=== PATIENT | male | born 1930 | race Caucasian/White ===

== ENCOUNTER 2017-07-27 19:30 | Inpatient (IN) | payer OTHER, BC ==
[~2017-07-27] VITALS: Ht 160 cm; Wt 104.3 kg
--- NOTE | ~2017-07-27 | HC ---
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 He is well known to me and in fact has had a fairly complete cardiac workup recently. Unfortunately, suffered a fall while going to a customer advisor specialist in the parking lot a couple of days ago with the left fractured nosed, left frontal forehead abrasion and a fracture of the right metacarpal bone in his right hand. He has been having some frequent PVCs and this is a known chronic finding. He has had frequent PVCs for years. He is moderately bradycardic. A few months ago, we switched the Cardizem to Toprol for some cardioprotection and then he subsequently has been doing well from a cardiac perspective. There has not been any syncope or presyncope and this was a fall. There were 3 syncopal events, but these occurred some months ago. This was a fall from the wind and not a syncopal event. Nuclear stress testing was done on 05/18/2017 and there was no evidence of significant ischemic response. Echo Doppler was also performed on 05/18 and this ejection fraction was 35-40% range in a global fashion, some mild atrial enlargement. There was no aortic valve stenosis. Mild mitral and tricuspid regurgitation. No effusion. He has actually been doing well until this fall. He was voicing no complaints. No TIA symptoms, no significant shortness of breath. He had been maintained on Toprol 50. This was held this morning for some mild bradycardia. Fenofibrate, aspirin, ranitidine, Metamucil. PAST MEDICAL HISTORY: Positive for cardiac catheterization with moderate 3-vessel disease in 2004. Recent nuclear test, mild idiopathic cardiomyopathy. Cholecystectomy colectomy, inguinal hernia repair, hypertension, hypercholesterolemia, melanoma in situ, reflux, DJD. ALLERGIES: PENICILLIN. SOCIAL HISTORY: He is independent. No tobacco. Social alcohol use. 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 He is . His did in 2010. REVIEW OF SYSTEMS: Negative except for some nocturia and hesitancy. Some reflux issues and as stated above and the 3 prior syncopal events, but none recently. LABORATORY WORK: CT of the head shows diffuse atrophy, no acute. There is a nondisplaced left nasal bone fracture. Creatinine was 1.9, this is around his baseline. Potassium 4.2. In fact the creatinine is improved now to 1.5 with some gentle hydration. Negative troponin. H and H are 15 and 44. PHYSICAL EXAMINATION: [facility] [address] [place] [address] CONSULTATION Name: MARISELA PEDRAZA Jono Room #: 410-P [facility] IN M.R.#: [id number] Admission: 07/27/17 Attend Phys: Gerry Kingsley MD Discharge: Date of : 31 Report #: [id number] GENERAL: Pleasant, alert. Does have an abrasion on his left face and nose and a splint on the right hand. VITAL SIGNS: Blood pressure 140/90, pulse is 55-60 with PVCs. HEENT: Eyes reveal no xanthelasmas. Arcus senilis is noted. Pharynx is clear. NECK: Shows preserved upstrokes without JVD or bruits. LUNGS: Clear. CARDIOVASCULAR: Regular rate and rhythm, S1, S2. There are frequent ectopic beats. ABDOMEN: Soft. No HSM or abdominal bruit. EXTREMITIES: Reveal no edema. There is a split in the right arm and there is a trace to 1+ edema bilateral lower extremities. MUSCULOSKELETAL: Generalized arthritic changes and the fracture of the right metacarpal bone with splint in place in the right hand. SKIN: Mild venous stasis changes. Abrasion on the left nose and left face. ASSESSMENT: 1. Status post fall secondary to wind, nonsyncopal. 2. Mild bradycardic, hemodynamically significant. 3. Frequent premature ventricular contractions are known by history. 4. Mild idiopathic cardiomyopathy with echo Doppler last performed on 05/18/2017, ejection fraction 40% range. 5. Moderate coronary artery disease with remote catheterization and negative nuclear test in 04/2017. 6. Right metacarpal bone fracture from fall and nasal fracture. RECOMMENDATIONS AND PLAN: I agree with holding the Toprol, currently, but will need a lower dose I suspect, not discontinued. We do like to continue with low-dose Toprol, beta blockers for the frequent ventricular ectopy. This was not related to any dysrhythmias in my opinion. We will keep him on the telemetry bed and follow with you. Thank you for asking me to assist in the care of this patient. By: 1234 1741 Caesar Escalona MD, FACC /nt
--- NOTE | ~2017-07-27 | EKG ---
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: MZOOK : 1930 Requested By: Ollie Michaels Order Number: [id number] MD: Eric Abdullahi Measurements Intervals [place] Rate: 63 P: 5 MD: 163 QRS: -41 QRSD: 116 T: -10 QT: 463 QTc: 475 Interpretive Statements Sinus rhythm Ventricular trigeminy Left anterior fascicular block Borderline T abnormalities, inferior leads No previous ECG available for comparison Electronically Signed On 07-28-2017 13:22:57 CDT by Eric Abdullahi [email or web address] <ELECTRONICALLY SIGNED> By: Eric Abdullahi MD, [facility] 07/28/17 1322 15 15 Eric Abdullahi MD, [facility] /EPI
[~2017-07-27 19:30] MED LIST: ASPIR 8181 MG PO; FENOFIBRATE134 MG PO; METOPROLOL SUCC50 MG PO
[2017-07-27 19:33] VITALS: BP 144/52
[2017-07-27] MEDS ORDERED: METAMUCIL PLUS1 EACH PO (20:01)
[2017-07-27 20:18] LABS: ABSOLUTE NEUTROPHILS 4.8 thou/uL (1.4-8.2); BASOPHILS 1.1 % (0.0-2.0); EOSINOPHILS 1.4 % (0.0-3.0); HEMATOCRIT 44.6 % (42.0-52.0); HEMOGLOBIN 15.1 gm/dL (14.0-18.0); LYMPHOCYTES 18.1 % (24.0-44.0); MCH 32.2 pg (26.0-34.0); MCHC 33.9 g/dL (28.0-37.0); MONOCYTES 9.6 % (1.0-8.0); PLATELET COUNT 164 thou/uL (150-400); POLYS 69.8 % (36.0-66.0); RBC 4.69 mil/uL (4.50-6.00); RDW 14.4 % (10.5-14.5); WBC 6.9 thou/uL (4.0-11.0)
[2017-07-27 20:28] LABS: CALCIUM 9.3 mg/dL (8.5-10.1); CREATININE 1.9 mg/dL (0.7-1.3); POTASSIUM 4.2 mmol/L (3.5-5.1)
[2017-07-27 20:36] LABS: TROPONIN-I 0.08 ng/mL (<0.06)
[2017-07-27 21:30] VITALS: BP 144/52
[2017-07-27 22:01] VITALS: BP 125/71
[2017-07-27 22:40] VITALS: BP 133/109
[2017-07-27 23:12] LABS: URINE BILIRUBIN NEGATIVE (Negative); URINE BLOOD NEGATIVE (Negative); URINE CLARITY CLEAR; URINE COLOR YELLOW; URINE GLUCOSE-RANDOM* NEGATIVE (Negative); URINE KETONES NEGATIVE (Negative); URINE LEUKOCYTES-REFLEX NEGATIVE (Negative); URINE NITRITE-REFLEX NEGATIVE (Negative); URINE PROTEIN (DIPSTICK) NEGATIVE (Negative); URINE SPECIFIC GRAVITY >= 1.030 (1.005-1.035); URINE UROBILINOGEN 0.2 E.U./dl (0.2-1.0)
[2017-07-27 23:19] VITALS: BP 141/76
[2017-07-27] MEDS ORDERED: KETOCONAZOLE15 GM TOP (23:25)
[2017-07-28 04:28] VITALS: BP 163/91
[2017-07-28 07:11] VITALS: BP 101/78
[2017-07-28 07:36] LABS: CALCIUM 8.7 mg/dL (8.5-10.1); CREATININE 1.5 mg/dL (0.7-1.3); POTASSIUM 3.8 mmol/L (3.5-5.1)
[2017-07-28 15:20] VITALS: BP 148/73
[2017-07-28 19:26] VITALS: BP 140/88
[2017-07-29 03:16] VITALS: BP 147/69
[2017-07-29 08:03] VITALS: BP 148/93
[2017-07-29 11:46] LABS: CALCIUM 8.8 mg/dL (8.5-10.1); CREATININE 1.5 mg/dL (0.7-1.3); MAGNESIUM 1.8 mg/dL (1.8-2.4); POTASSIUM 4.3 mmol/L (3.5-5.1); TROPONIN-I 0.05 ng/mL (<0.06)
[2017-07-29 16:04] VITALS: BP 124/68
[2017-07-29 20:22] VITALS: BP 123/65
[2017-07-30 05:08] VITALS: BP 132/68
[2017-07-30 07:30] VITALS: BP 138/79; BP 156/78
[2017-07-30] MEDS ORDERED: NYAMYC15 GM TOP (12:10)
[2017-07-30] MEDS ORDERED: METOPROLOL SUCC25 M1 PO (12:11)
[2017-07-30] MEDS ORDERED: ARTIFICIAL TEA3.5 G2 OPHTHALMIC (12:12)
[2017-07-30 14:10] LABS: HEMATOCRIT 47.4 % (42.0-52.0); HEMOGLOBIN 15.6 gm/dL (14.0-18.0); MCH 31.7 pg (26.0-34.0); MCV 96.2 fL (80.0-100.0); RBC 4.93 mil/uL (4.50-6.00); RDW 14.4 % (10.5-14.5); WBC 6.5 thou/uL (4.0-11.0)
[2017-07-30 14:20] LABS: CALCIUM 9.1 mg/dL (8.5-10.1); CREATININE 1.6 mg/dL (0.7-1.3); MAGNESIUM 1.8 mg/dL (1.8-2.4); POTASSIUM 4.3 mmol/L (3.5-5.1)
[2017-07-30 14:31] VITALS: BP 161/88
[2017-07-30 14:32] VITALS: BP 161/66
[2017-07-30 14:33] VITALS: BP 151/107
[2017-07-30 15:35] VITALS: BP 151/107
== END 2017-07-30 16:45 | DRG 682 ==
LOC: ER 19:30 → EROBS 21:26 → 4N 21:26
PROVIDERS: Internal Medicine; Nurse Practitioner Acute Care; Physician Assistant
DX: N17.9 Acute kidney failure, unspecified (principal); E43 Unspecified severe protein-calorie malnutrition; I42.8 Other cardiomyopathies; S62.309A Unspecified fracture of unspecified metacarpal bone, initial encounter for closed fracture; S02.2XXA Fracture of nasal bones, initial encounter for closed fracture; I12.9 Hypertensive chronic kidney disease with stage 1 through stage 4 chronic kidney disease, or unspecified chronic kidney disease; R00.1 Bradycardia, unspecified; W18.39XA Other fall on same level, initial encounter; Y93.89 Activity, other specified; Y92.89 Other specified places as the place of occurrence of the external cause; Y99.8 Other external cause status; I25.10 Atherosclerotic heart disease of native coronary artery without angina pectoris; Z90.49 Acquired absence of other specified parts of digestive tract; Z86.19 Personal history of other infectious and parasitic diseases; Z88.0 Allergy status to penicillin; Z79.899 Other long term (current) drug therapy; N18.9 Chronic kidney disease, unspecified
CPT/HCPCS: 10790

== ENCOUNTER → 2018-08-28 | Outpatient (CLI) | payer OTHER, BC ==
[~2018-08-28] MED LIST changes: +ARTIFICIAL TEA3.5 G2 OPHTHALMIC; +KETOCONAZOLE15 GM TOP; +METAMUCIL PLUS1 EACH PO; +METOPROLOL SUCC25 M1 PO; +NYAMYC15 GM TOP
--- NOTE | ~2018-08-28 | P ---
[address] [place] [address] PROCEDURE REPORT Name: KEILAMARISELA Room #: REG DANIS Nubia.#: [id number] Admission: 08/28/18 ������������������ Attend Phys: José Bob MD Discharge: ������������������ Date of : 31 Report #: [id number] THIS REPORT FOR: //name// CC: [facility] PROCEDURE: Implantable loop recorder insertion. PREOPERATIVE DIAGNOSIS: Palpitations. POSTOPERATIVE DIAGNOSIS: Palpitations. DESCRIPTION OF PROCEDURE: The patient underwent informed consent. He was then prepped and draped in a sterile fashion. I injected lidocaine at the incision site. Incision was made. The device was injected under the skin in a single layer of suture was placed. Surgical glue was placed on the outer skin layer. The implanted device was a [employer], model #3500, serial #[id number]. The device was programmed to its nominal settings. The R waves were 0.55 millivolts. CONCLUSIONS: Successful implantation of an implantable loop recorder. ��������������������������������������������� ���������������������������������������� By: ��������������������������������������������� 1259 [id number] José Bob MD /nt
[2018-08-28 12:33] VITALS: BP 151/77
== END | disposition home or self-care (01) ==
LOC: CATH 10:46
DX: R00.2 Palpitations (principal); Z98.890 Other specified postprocedural states; Z88.0 Allergy status to penicillin; Z79.899 Other long term (current) drug therapy

== ENCOUNTER → 2018-12-20 | Outpatient (CLI) | payer OTHER, BC | LOC: HYPER 12:05 | DX: L97.811 Non-pressure chronic ulcer of other part of right lower leg limited to breakdown of skin (principal); I87.2 Venous insufficiency (chronic) (peripheral); E78.5 Hyperlipidemia, unspecified; I10 Essential (primary) hypertension; I25.10 Atherosclerotic heart disease of native coronary artery without angina pectoris; M19.90 Unspecified osteoarthritis, unspecified site; R60.1 Generalized edema ==

== ENCOUNTER 2019-01-03 11:07 | Observation (INO) | payer OTHER, BC ==
[~2019-01-03] VITALS: Ht 190.5 cm; Wt 105.8 kg
[2019-01-03 11:40] VITALS: BP 166/80
[2019-01-03] MEDS ORDERED: ASPIR 8181 MG PO (11:56)
[2019-01-03] MEDS ORDERED: PACERONE 200 M200 M1 PO (11:57)
[2019-01-03] MEDS ORDERED: PLAVIX 75 MG TA75 M1 PO (11:57)
[2019-01-03 12:07] LABS: HEMOGLOBIN 14.4 gm/dL (14.0-18.0); MCH 32.1 pg (26.0-34.0); MCHC 32.7 g/dL (28.0-37.0); MCV 98.3 fL (80.0-100.0); RBC 4.47 mil/uL (4.50-6.00); WBC 6.5 thou/uL (4.0-11.0)
[2019-01-03 12:12] LABS: CALCIUM 9.2 mg/dL (8.5-10.1); CREATININE 2.3 mg/dL (0.7-1.3); POTASSIUM 4.3 mmol/L (3.5-5.1)
[2019-01-03 12:16] LABS: INR 1.1; PROTIME 11.8 Seconds (9.3-11.4)
[2019-01-03 15:20] VITALS: BP 135/79
[2019-01-03 15:30] VITALS: BP 135/79
--- NOTE | 2019-01-03 18:53 | NUR ---
ASSUMED CARE OF PATIENT AT 1515 FROM AUDIT CLERK. HEMOSTASIS AT 1455, PATIENT ON BEDREST UNTIL 1700. PATIENT LAYING FLAT AND CHOSE TO RAISE TO 15 DEGREES. LEFT GROIN SITE CHECKED WITH AUDIT CLERK RN. SITE CLEAN, DRY AND INTACT.
--- NOTE | 2019-01-03 19:56 | NUR ---
ASSUMED CARE OF PATIENT AT 1515. PATIENT ON BEDREST POST CATH UNTIL 1700. PATIENT MOVED TO A SITTING POSITION. WALKER PROVIDED TO THE PATIENT IF HE DECIDED TO GET UP AND WALK. AT SHIFT CHANGE, LEFT GROIN SITE VERIFIED WITH ONCOMING NURSE. LEFT GROIN SITE CONTINUES TO BE CLEAN, DRY AND INTACT. PATIENT DENIES ANY TENDERNESS. PATIENT TO CONTINUE WITH POC.
[2019-01-03 20:00] VITALS: BP 147/64
[2019-01-03 20:12] VITALS: BP 147/64
[2019-01-04] VITALS (7 sets, daily range): BP systolic 138–158; BP diastolic 60–71
--- NOTE | 2019-01-04 04:54 | NUR ---
ASSESSMENT DOCUMENTED.PT BEEN RESTING IN NO ACUTE DISTRESS.S/P AORTAGRAM W/RUNOFF,LEFT GROIN DRESSING CDI.VSS.PERIPHERAL PULSES PRESENT ON DOPPLER.AMBULATED 2 LAPS ON HALLWAY WITH WALKER,TOLERATED.UP TO BR WITH SBA.PT TO DISCHARGE TODAY.WILL CONT TO MONITOR PER POC.
[2019-01-04 08:11] LABS: CALCIUM 8.9 mg/dL (8.5-10.1); CREATININE 2.2 mg/dL (0.7-1.3); POTASSIUM 4.7 mmol/L (3.5-5.1)
--- NOTE | 2019-01-04 14:01 | NUR ---
PT HAD A DC PENDING, [employer] CALLED AND ASKED THAT I PLACE AN ORDER FOR D/C, PT ALREADY HAD WOUND CARE COME BY TO TAKE CARE OF HIS WOUND, RX GIVEN, D/C PAPERWORK FILLED OUT. IN THE DICTATION ROOM HIS ADMISSION PAPERWORK WAS LYING, HAD HIM SIGN THIS WELL WITH TODAY'S DATE. D/C'D W/VOLUNTEER AND GRANDSON
--- NOTE | 2019-01-10 12:21 | HC ---
[facility] [place] [address] CONSULTATION Name: MARISELA PEDRAZA Room #: 203-P [facility] Becca Call#: [id number] Admission: 01/03/19 ������������������ Attend Phys: Ricardo Torres MD Discharge: 01/04/19 ������������������ Date of : 31 Report #: [id number] THIS REPORT FOR: //name// CC: Ricardo Isabel DATE OF SERVICE: 01/04/2019 CHIEF COMPLAINT: Chronic ulceration to the right lower extremity. 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 It has been nonhealing. He was noted to have some peripheral vascular disease. He is now status post right superficial femoral artery stent graft and renal artery stenosis status post left renal stent placement. I have been asked to see him with regard to wound care. The patient notes some pain and drainage. He has previously had a biopsy from the area that demonstrated some evidence of venous stasis dermatitis, but has not had any change in therapy. He has had some topical medications. He is not entirely sure what is being utilized. No compression has been utilized thus far. The patient denies significant pain associated with this. PAST MEDICAL HISTORY: Positive for history of coronary artery disease as well as peripheral vascular disease, hypercholesterolemia, and renal artery stenosis. MEDICATIONS: Include aspirin, amiodarone, Plavix, nystatin, metoprolol, ketaconazole. ALLERGIES: To PENICILLIN. SOCIAL HISTORY: Negative for current alcohol or tobacco use. 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 FAMILY HISTORY: Noncontributory. SOCIAL HISTORY: Negative for current alcohol or tobacco use. REVIEW OF SYSTEMS: CONSTITUTIONAL: The patient denies fever, chills or weight loss. NEUROLOGICAL: The patient denies focal weakness, numbness or tingling. EYES: The patient denies visual changes, redness, or drainage. ENT: The patient denies earache, nasal drainage or sore throat. CARDIOVASCULAR: The patient denies chest pain, palpitations or diaphoresis. PULMONARY: The patient denies cough or shortness of breath. GASTROINTESTINAL: The patient denies nausea, vomiting, diarrhea or abdominal [facility] [address] [place] [address] CONSULTATION Name: MARISELA PEDRAZA Room #: 203-P [facility] Call#: [id number] Admission: 01/03/19 ������������������ Attend Phys: Ricardo Torres MD Discharge: 01/04/19 ������������������ Date of : 31 Report #: [id number] pain. ORTHOPEDIC: The patient does complain of the ulceration involving his right lower leg. Other systems in a 14-point review of systems are negative. PHYSICAL EXAMINATION: VITAL SIGNS: At this time include temperature 36.9, pulse 62, respiratory rate 18, blood pressure 149/67. GENERAL: This is a chronically ill-appearing male patient who appears to be in no distress. HEENT: Head normocephalic. Nose and throat clear. NECK: Supple. LUNGS: Clear. ABDOMEN: Soft. Bowel sounds present. EXTREMITIES: Examination of his lower extremities demonstrates palpable dorsalis pedis pulses bilaterally and also palpable but less prominent posterior tibial pulses. There is a circular ulcerative patch involving the right lower leg. There is some fibrinous accumulation on the surface, but is relatively clean and granulating. The previous punch biopsy site still appears to remain open. NEUROLOGIC: The patient is alert and oriented and appropriate. CLINICAL IMPRESSION: 1. 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 2. Peripheral arterial disease, status post right superficial femoral artery stent graft placement. 3. Renal artery stenosis. 4. Coronary artery disease. LABORATORY STUDIES: Sodium 142, potassium 4.3, chloride 106, CO2 of 26, BUN 33, creatinine 2.3, protime is 11.8, INR is 1.1. White blood cell count is 6.5 with a hemoglobin of 14.4. RECOMMENDATIONS: At this point in time, we will recommend topical Chantel to the wound bed followed by a foam-based dressing and then lightly placed Kerlix and Sagar wrap. We will ask home health to change this dressing 3 days per week. Cultures have been obtained and will be pending. We will follow those up on his followup. I would like to see him in about 7-10 days in the clinic for further followup with which the patient is agreeable. I appreciate being asked to see the patient in consultation. ��������������������������������������������� <ELECTRONICALLY SIGNED> ���������������������������������������� By: Yohan Paul MD ��������������������������������������������� 01/10/19 1221 1758 0033 Yohan Paul MD /nt
== END 2019-01-04 13:56 | disposition home or self-care (01) ==
LOC: CATH 11:07 → 2N 15:48
PROVIDERS: Nurse Practitioner Adult Health; ADMIT Nuclear Medicine Nuclear Cardiology
DX: I70.201 Unspecified atherosclerosis of native arteries of extremities, right leg (principal); I70.1 Atherosclerosis of renal artery; I25.10 Atherosclerotic heart disease of native coronary artery without angina pectoris; E78.00 Pure hypercholesterolemia, unspecified; N17.9 Acute kidney failure, unspecified; R00.2 Palpitations; I49.3 Ventricular premature depolarization; I10 Essential (primary) hypertension; Z79.82 Long term (current) use of aspirin; Z79.01 Long term (current) use of anticoagulants; Z79.899 Other long term (current) drug therapy

== ENCOUNTER → 2019-01-14 | Outpatient (CLI) | payer OTHER, BC ==
[~2019-01-14] MED LIST changes: +PACERONE 200 M200 M1 PO; +PLAVIX 75 MG TA75 M1 PO
== END ==
LOC: HYPER 07:01
DX: L97.811 Non-pressure chronic ulcer of other part of right lower leg limited to breakdown of skin (principal); I87.2 Venous insufficiency (chronic) (peripheral); E78.5 Hyperlipidemia, unspecified; I10 Essential (primary) hypertension; I25.10 Atherosclerotic heart disease of native coronary artery without angina pectoris; M19.90 Unspecified osteoarthritis, unspecified site; R60.1 Generalized edema

== ENCOUNTER → 2019-01-28 | Outpatient (CLI) | payer OTHER, BC | LOC: HYPER 07:22 | DX: L97.811 Non-pressure chronic ulcer of other part of right lower leg limited to breakdown of skin (principal); I87.2 Venous insufficiency (chronic) (peripheral); E78.5 Hyperlipidemia, unspecified; I25.10 Atherosclerotic heart disease of native coronary artery without angina pectoris; I10 Essential (primary) hypertension; M19.90 Unspecified osteoarthritis, unspecified site; R60.1 Generalized edema ==

== ENCOUNTER → 2019-05-03 | Outpatient (CLI) | payer OTHER, BC | LOC: SJCVCIMAG 12:34 | DX: I65.23 Occlusion and stenosis of bilateral carotid arteries (principal); I70.201 Unspecified atherosclerosis of native arteries of extremities, right leg; I11.9 Hypertensive heart disease without heart failure; R94.31 Abnormal electrocardiogram [ECG] [EKG]; I72.4 Aneurysm of artery of lower extremity; I70.1 Atherosclerosis of renal artery; E78.00 Pure hypercholesterolemia, unspecified; I25.10 Atherosclerotic heart disease of native coronary artery without angina pectoris; K21.9 Gastro-esophageal reflux disease without esophagitis; Z90.49 Acquired absence of other specified parts of digestive tract; Z79.82 Long term (current) use of aspirin; Z79.899 Other long term (current) drug therapy; Z85.828 Personal history of other malignant neoplasm of skin ==

== ENCOUNTER → 2020-06-26 | Outpatient (CLI) | payer OTHER, BC | LOC: SJCVCIMAG 08:24 | PROVIDERS: ATTEND Internal Medicine Cardiovascular Disease | DX: I65.23 Occlusion and stenosis of bilateral carotid arteries (principal); R94.31 Abnormal electrocardiogram [ECG] [EKG]; I49.3 Ventricular premature depolarization; I11.9 Hypertensive heart disease without heart failure; I25.10 Atherosclerotic heart disease of native coronary artery without angina pectoris; E78.00 Pure hypercholesterolemia, unspecified; I70.1 Atherosclerosis of renal artery; I72.4 Aneurysm of artery of lower extremity; I73.9 Peripheral vascular disease, unspecified; I42.9 Cardiomyopathy, unspecified; R60.9 Edema, unspecified; M19.90 Unspecified osteoarthritis, unspecified site; Z90.49 Acquired absence of other specified parts of digestive tract; Z98.890 Other specified postprocedural states; Z88.0 Allergy status to penicillin; Z79.899 Other long term (current) drug therapy; Z82.49 Family history of ischemic heart disease and other diseases of the circulatory system ==

== ENCOUNTER → 2021-03-25 | Outpatient (CLI) | payer OTHER, BC ==
[~2021-03-25] MED LIST changes: +DILTIAZEM 24HR120 M1 PO; +FUROSEMIDE 20 M20 M1 PO; +MELOXICAM7.5 MG PO
== END ==
LOC: SJCVCIMAG 02-12 14:57
PROVIDERS: ATTEND Internal Medicine Cardiovascular Disease
DX: I65.23 Occlusion and stenosis of bilateral carotid arteries (principal); I70.201 Unspecified atherosclerosis of native arteries of extremities, right leg; S81.809A Unspecified open wound, unspecified lower leg, initial encounter; I72.4 Aneurysm of artery of lower extremity; I10 Essential (primary) hypertension; E78.00 Pure hypercholesterolemia, unspecified; I42.9 Cardiomyopathy, unspecified; R60.9 Edema, unspecified; I25.10 Atherosclerotic heart disease of native coronary artery without angina pectoris; Z90.49 Acquired absence of other specified parts of digestive tract; Z98.890 Other specified postprocedural states; Z79.82 Long term (current) use of aspirin; Z79.899 Other long term (current) drug therapy; Z88.0 Allergy status to penicillin; X58.XXXA Exposure to other specified factors, initial encounter; Y93.89 Activity, other specified; Y92.89 Other specified places as the place of occurrence of the external cause; Y99.8 Other external cause status

== ENCOUNTER 2021-03-27 13:03 | Emergency (ER) | payer OTHER, BC ==
[~2021-03-27] VITALS: Ht 190.5 cm; Wt 104.3 kg
[~2021-03-27 13:03] MED LIST changes: -DILTIAZEM 24HR120 M1 PO; -FUROSEMIDE 20 M20 M1 PO; -MELOXICAM7.5 MG PO
[2021-03-27] MEDS ORDERED: MELOXICAM7.5 MG PO (13:36)
[2021-03-27] MEDS ORDERED: DILTIAZEM 24HR120 M1 PO (13:36)
[2021-03-27] MEDS ORDERED: FUROSEMIDE 20 M20 M1 PO (13:36)
[2021-03-27 13:42] LABS: ABSOLUTE NEUTROPHILS 5.1 thou/uL (1.4-8.2); BASOPHILS 0.4 % (0.0-2.0); EOSINOPHILS 0.1 % (0.0-3.0); HEMATOCRIT 48.4 % (42.0-52.0); HEMOGLOBIN 16.1 gm/dL (14.0-18.0); LYMPHOCYTES 8.5 % (24.0-44.0); MCH 31.4 pg (26.0-34.0); MCHC 33.3 g/dL (28.0-37.0); MCV 94.4 fL (80.0-100.0); MONOCYTES 11.3 % (1.0-8.0); PLATELET COUNT 128 thou/uL (150-400); POLYS 79.7 % (36.0-66.0); RBC 5.13 mil/uL (4.50-6.00); WBC 6.4 thou/uL (4.0-11.0)
[2021-03-27 13:53] LABS: CALCIUM 8.2 mg/dL (8.5-10.1); CREATININE 1.8 mg/dL (0.7-1.3); POTASSIUM 4.1 mmol/L (3.5-5.1)
[2021-03-27 14:04] LABS: ALBUMIN 3.2 g/dL (3.4-5.0); MAGNESIUM 1.9 mg/dL (1.8-2.4); TOTAL BILIRUBIN 0.6 mg/dL (0.2-1.0); TOTAL PROTEIN 6.7 g/dL (6.4-8.2)
[2021-03-27 15:35] LABS: URINE BILIRUBIN NEGATIVE (Negative); URINE BLOOD NEGATIVE (Negative); URINE CLARITY CLEAR; URINE COLOR YELLOW; URINE GLUCOSE-RANDOM* NEGATIVE (Negative); URINE KETONES NEGATIVE (Negative); URINE LEUKOCYTES-REFLEX NEGATIVE (Negative); URINE NITRITE-REFLEX NEGATIVE (Negative); URINE PROTEIN (DIPSTICK) TRACE (Negative); URINE SPECIFIC GRAVITY >= 1.030 (1.005-1.035); URINE UROBILINOGEN 0.2 E.U./dl (0.2-1.0)
[2021-03-27 16:23] VITALS: BP 131/56
--- NOTE | 2021-03-28 12:03 | EKG ---
[place] [address] [facility] [place] [address] ELECTROCARDIOGRAM REPORT Name: MARISELA PEDRAZA Room #: DEP [facility]#: [id number] Admission: 03/27/21 Attend Phys: Discharge: 03/27/21 Date of : 31 Report #: [id number] 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: : 1930 Requested By: Italo Castillo Order Number: [id number] MD: José Bob Measurements Intervals [place] Rate: 71 P: -32 WV: 168 QRS: -44 QRSD: 116 T: 55 QT: 415 QTc: 451 Interpretive Statements Sinus rhythm Multiform ventricular premature complexes Left anterior fascicular block Left ventricular hypertrophy Compared to ECG 07/27/2017 20:16:05 Left ventricular hypertrophy now present T-wave abnormality no longer present Electronically Signed On 03-28-2021 12:03:41 CHIEF DESIGN BRANCH by José Bob [email or web address] <ELECTRONICALLY SIGNED> By: José Bob MD 03/28/21 1203 1350 1350 José Bob MD /EPI
== END 2021-03-27 17:29 | disposition home or self-care (01) ==
LOC: ER 13:03
PROVIDERS: Emergency Medicine
DX: E86.0 Dehydration (principal); Z20.822 Contact with and (suspected) exposure to COVID-19; R19.7 Diarrhea, unspecified; R53.1 Weakness; I25.10 Atherosclerotic heart disease of native coronary artery without angina pectoris; K21.9 Gastro-esophageal reflux disease without esophagitis; I10 Essential (primary) hypertension; Z88.0 Allergy status to penicillin; Z79.899 Other long term (current) drug therapy; Z79.82 Long term (current) use of aspirin